=== PATIENT | male | born 1975 | race Caucasian/White ===

== ENCOUNTER 2019-01-16 00:14 | Emergency (ER) | payer SELFPAY ==
[~2019-01-16] VITALS: Ht 172.7 cm; Wt 92.5 kg
[~2019-01-16 00:14] MED LIST: NKM; VALIUM10 MG ORAL; [UNRECOGNIZED DRUG - REMARK]
[2019-01-16] MEDS ORDERED: DIOVAN80 MG ORAL (00:23)
[2019-01-16 00:40] VITALS: BP 132/78
--- NOTE | 2019-01-16 00:40 | NUR ---
ED Nurse Note: Patient walked in to ER c/o chest pain 12/12. Per patient he just broke up with his and because of that he keeps drinking a lot. AAO x4, VSS at this time, skin is dry, warm to touch.
[2019-01-16 00:54] LABS: BASOPHILS % (AUTO) 1.2 % (0.0-2.0); EOSINOPHILS % (AUTO) 1.2 % (0.0-3.0); HEMATOCRIT 43.8 % (42.0-52.0); HEMOGLOBIN 15.9 G/DL (14.2-18.0); LYMPHOCYTES % (AUTO) 32.2 % (20.0-45.0); MEAN CORPUSCULAR VOLUME 84 FL (80-99); MONOCYTES % (AUTO) 7.2 % (1.0-10.0); NEUTROPHILS % (AUTO) 58.3 % (45.0-75.0); PLATELET COUNT 319 K/UL (150-450); RED BLOOD COUNT 5.21 M/UL (4.70-6.10); RED CELL DISTRIBUTION WIDTH 10.7 % (11.6-14.8); WHITE BLOOD COUNT 14.3 K/UL (4.8-10.8)
[2019-01-16 01:06] LABS: ANION GAP 12 mmol/L (5-15); BLOOD UREA NITROGEN 14 mg/dL (7-18); CALCIUM 8.9 MG/DL (8.5-10.1); CARBON DIOXIDE 26 MMOL/L (21-32); CHLORIDE 102 MMOL/L (98-107); CREATININE 0.8 MG/DL (0.55-1.30); POTASSIUM 3.6 MMOL/L (3.5-5.1); SODIUM 140 MMOL/L (136-145)
[2019-01-16 01:10] LABS: ALANINE AMINOTRANSFERASE 67 U/L (12-78); ALBUMIN/GLOBULIN RATIO 1.3 (1.0-2.7); ALKALINE PHOSPHATASE 48 U/L (46-116); ASPARTATE AMINO TRANSFERASE 36 U/L (15-37); BILIRUBIN,TOTAL 0.5 MG/DL (0.2-1.0)
--- NOTE | 2019-01-16 01:36 | Emergency Room Report ---
History of Present Illness General Chief Complaint: Chest Pain Source: Patient Present Illness HPI This is a 43-year-old male with history anxiety. He presents with chief when a multiple complaint. He complaining of chest pain, not feeling well. He said he broke up with his and has been drinking for the last 3 days. Denies suicidal thoughts or homicidal thought. Does any fever or chills. Denies any vomiting. Most of his pain is vague and diffuse in nature. Allergies: Coded Allergies: No Known Allergies (Unverified , 03/19/13) Patient History Past Medical History: see triage record, old chart reviewed, psych hx Past Surgical History: none Pertinent Family History: none Social History: Reports: alcohol use Immunizations: other Reviewed Nursing Documentation: PMH: Agreed; PSxH: Agreed Nursing Documentation-PMH Past Medical History: No History, Except For Hx Hypertension: Yes Review of Systems Constitutional: Reports: malaise Eye: Denies: eye pain, blurred vision ENT: Denies: ear pain, nose congestion, throat swelling Respiratory: Denies: cough, shortness of breath Cardiovascular: Reports: chest pain; Denies: palpitations Gastrointestinal: Denies: abdominal pain, diarrhea, nausea, vomiting Musculoskeletal: Denies: back pain, joint pain Skin: Denies: rash Neurological: Denies: headache, numbness Endocrine: Denies: increased thirst, increased urine Hematologic/Lymphatic: Denies: easy bruising All Other Systems: negative except mentioned in HPI Physical Exam Vital Signs Date Time Temp Pulse Resp B/P (MAP) Pulse Ox O2 Delivery O2 Flow Rate FiO2 01/16/19 00:18 98.2 98 18 95 Room Air 01/16/19 00:40 132/78 vitals normal Sp02 EP Interpretation: reviewed, normal General Appearance: well appearing, no apparent distress, alert Head: normocephalic, atraumatic Eyes: bilateral eye PERRL, bilateral eye EOMI ENT: hearing grossly normal, normal pharynx Neck: full range of motion, supple, no meningismus Respiratory: chest non-tender, lungs clear, normal breath sounds Cardiovascular #1: regular rate, rhythm, no murmur Gastrointestinal: normal bowel sounds, non tender, no mass, no organomegaly, no bruit, non-distended Musculoskeletal: back normal, gait/station normal, normal range of motion Psychiatric: anxious Skin: warm/dry Medical Decision Making Diagnostic Impression: Primary Impression: Chest pain Qualified Codes: R07.9 - Chest pain, unspecified Additional Impression: Alcohol abuse ER Course patient presents with atypical chest pain. No evidence of ACS, PE, dissection to name a few. EKG Diagnostic Results Rate: normal Rhythm: NSR ST Segments: no acute changes ASA given to the pt in ED: No Rhythm Strip Diag. Results EP Interpretation: yes Rate: 65 Rhythm: NSR, no PVC's, no ectopy Last Vital Signs Date Time Temp Pulse Resp B/P (MAP) Pulse Ox O2 Delivery O2 Flow Rate FiO2 01/16/19 00:40 98 18 Room Air 01/16/19 00:40 98.2 132/78 95 Status: improved Disposition: HOME, SELF-CARE Condition: Stable Referrals: NOT CHOSEN IPA/MD,REFERRING (PCP) Patient Instructions: Nonspecific Chest Pain Additional Instructions: Stop drinking alcohol to excess. Follow-up with your doctor in 7 days. Return if worse. Lino Hirsch MD January 16, 2019 01:36
[2019-01-16 01:45] VITALS: BP 132/78
--- NOTE | 2019-01-16 01:45 | NUR ---
ED Nurse Note: Pt cleared by health care Provider for discharge. DC instructions/prescription was given and explained to pt and verbalized understanding of teachings. All medical deviecs such as ID band and IV removed. Pt is AAO x4, ambulatory and left with all personal belongings.
--- NOTE | 2019-01-16 17:30 | Cardiology Report ---
APPROVED REPORT EKG Measurement Heart [id number] Normal sinus rhythm Normal ECG
[2019-01-17] MEDS ORDERED: BUSPAR10 MG ORAL (01:43)
== END 2019-01-16 01:45 | disposition home or self-care (01) ==
LOC: EMR 00:37
DX: R07.9 Chest pain, unspecified (principal); F10.10 Alcohol abuse, uncomplicated; F41.9 Anxiety disorder, unspecified; I10 Essential (primary) hypertension
CPT/HCPCS: 36415; 80053; 83690; 84484; 85025; 93005; 96360; 99284

== ENCOUNTER 2019-01-17 01:20 | Emergency (ER) | payer SELFPAY ==
[~2019-01-17] VITALS: Ht 172.7 cm; Wt 92.5 kg
[~2019-01-17 01:20] MED LIST changes: +DIOVAN80 MG ORAL
[2019-01-17 01:30] VITALS: BP 136/91
[2019-01-17] MEDS ORDERED: BUSPAR10 MG ORAL (01:43)
--- NOTE | 2019-01-17 01:43 | Emergency Room Report ---
History of Present Illness General Chief Complaint: Chest Pain Source: Patient Present Illness HPI Is a 43-year-old male with history anxiety. He presents with chief complaint of chest pain and dizziness. He said he felt anxious. His been drinking alcohol. I saw him last night for the same thing. Blood work was normal. Troponin negative. Patient is on a lot of stress because he is from his . He has been drinking more. Denies any nausea vomiting. He felt anxious. [place] chest pain. [place] palpitation. Denies any other complaint. He walked in here without any difficulty. Allergies: Coded Allergies: No Known Allergies (Unverified , 03/19/13) Patient History Past Medical History: see triage record, old chart reviewed, psych hx Past Surgical History: none Pertinent Family History: none Social History: Reports: alcohol use Immunizations: other Reviewed Nursing Documentation: PMH: Agreed; PSxH: Agreed Nursing Documentation-PMH Past Medical History: No History, Except For Hx Hypertension: Yes Review of Systems Eye: Denies: eye pain, blurred vision ENT: Denies: ear pain, nose congestion, throat swelling Respiratory: Denies: cough, shortness of breath Cardiovascular: Reports: chest pain, palpitations Gastrointestinal: Denies: abdominal pain, diarrhea, nausea, vomiting Musculoskeletal: Denies: back pain, joint pain Skin: Denies: rash Neurological: Denies: headache, numbness Endocrine: Denies: increased thirst, increased urine Hematologic/Lymphatic: Denies: easy bruising All Other Systems: negative except mentioned in HPI Physical Exam Vital Signs Date Time Temp Pulse Resp B/P (MAP) Pulse Ox O2 Delivery O2 Flow Rate FiO2 01/17/19 01:23 98.2 113 18 95 Room Air vitals with tachycardia and high blood pressure Sp02 EP Interpretation: reviewed, normal General Appearance: well appearing, no apparent distress, alert Head: normocephalic, atraumatic Eyes: bilateral eye PERRL, bilateral eye EOMI ENT: hearing grossly normal, normal pharynx Neck: full range of motion, supple, no meningismus Respiratory: chest non-tender, lungs clear, normal breath sounds Cardiovascular #1: regular rate, rhythm, no murmur Gastrointestinal: normal bowel sounds, non tender, no mass, no organomegaly, no bruit, non-distended Musculoskeletal: back normal, gait/station normal, normal range of motion Psychiatric: anxious Skin: warm/dry Medical Decision Making Diagnostic Impression: Primary Impression: Anxiety Additional Impressions: Alcohol abuse Chest pain Qualified Codes: R07.9 - Chest pain, unspecified ER Course Patient presents with symptoms consistent with anxiety/panic attack. Probably worse by stressor and alcohol abuse. I see no evidence of ACS, PE, dissection to name a few. Her pressures normal here. Heart rate is in the 80s. We'll discharge home. EKG Diagnostic Results Rate: normal Rhythm: NSR ST Segments: no acute changes ASA given to the pt in ED: No Rhythm Strip Diag. Results EP Interpretation: yes Rate: 83 Rhythm: NSR, no PVC's, no ectopy Last Vital Signs Date Time Temp Pulse Resp B/P (MAP) Pulse Ox O2 Delivery O2 Flow Rate FiO2 01/17/19 01:23 98.2 113 18 95 Room Air Status: improved Disposition: HOME, SELF-CARE Condition: Stable Scripts Buspirone Hcl* (BUSPAR*) 10 Mg Tablet 10 MG ORAL THREE TIMES A DAY, #21 TAB 0 Refills Prov: Lino Hirsch MD 01/17/19 Referrals: NOT CHOSEN [facility]/,REFERRING (PCP) Additional Instructions: Stop drinking alcohol. Follow-up with your doctor in 7 days. Return if worse. Lino Hirsch MD January 17, 2019 01:43
--- NOTE | 2019-01-17 01:45 | NUR ---
ED Nurse Note: RECIEVED PT FROM HOME, AWEAKE, ALERT AND ORIENTED X 4, AMBULATORY WITH STEADY GAIT, PT HERE WITH C/O FEELING ANXIOUS, PT ACTUALLY DENIES PAIN AND STATES HE CANT SLEEP AND FEELS STRESSED, PT DOES ADMIT TO DRINKING ALCOHOL AND HAS STRONG ETOH ODOR NOTED, PT IMMEDIATELY ASSISTED WITH GOWNING AND CARDIAC MONITORING, PT SEEN BY MD AND BEING RELEASED WITH PRESCRIPTIONS, PT DENIES BEING HOMELESS, NAD NOTED DURING D/C TO HOME, PT V/S STABLE AND EKG IN NSR. NAD NOTED DURING D/C TO HOME.
[2019-01-17 01:50] VITALS: BP 136/91
== END 2019-01-17 01:55 | disposition home or self-care (01) ==
LOC: EMR 01:26
DX: F41.9 Anxiety disorder, unspecified (principal); F10.10 Alcohol abuse, uncomplicated; R07.9 Chest pain, unspecified; I10 Essential (primary) hypertension
CPT/HCPCS: 93005; 99283

== ENCOUNTER 2019-01-17 04:37 | Emergency (ER) | payer SELFPAY ==
[~2019-01-17] VITALS: Ht 172.7 cm; Wt 90.7 kg
[~2019-01-17 04:37] MED LIST changes: +BUSPAR10 MG ORAL
[2019-01-17 04:49] VITALS: BP 146/82
--- NOTE | 2019-01-17 04:49 | NUR ---
ED Nurse Note: Pt arrived ED from home. C/o abdominal pain and headache today and it was his the third time came to ED today. Pt is A/O X 4, Vital signs stable at this time, waiting for orders.
--- NOTE | 2019-01-17 04:58 | Emergency Room Report ---
History of Present Illness General Chief Complaint: Abdominal Pain Source: Patient Present Illness HPI Is a 43-year-old male who has history of alcohol abuse. Also has anxiety. I just saw him few hours ago. He came in with anxiety and dizziness and chest pain. Now he came back with complaint of abdominal pain. Onset was just prior to arrival. No nausea no vomiting. No fever chills but no vomiting or diarrhea. Pain is diffuse in nature. Denies any other complaint. Pain is 8 out of 10. Allergies: Coded Allergies: No Known Allergies (Unverified , 01/17/19) Patient History Past Medical History: see triage record, old chart reviewed, psych hx Past Surgical History: none Pertinent Family History: none Social History: Reports: alcohol use Immunizations: other Reviewed Nursing Documentation: PMH: Agreed; PSxH: Agreed Nursing Documentation-PMH Hx Hypertension: Yes Review of Systems Eye: Denies: eye pain, blurred vision ENT: Denies: ear pain, nose congestion, throat swelling Respiratory: Denies: cough, shortness of breath Cardiovascular: Denies: chest pain, palpitations Gastrointestinal: Reports: abdominal pain; Denies: diarrhea, nausea, vomiting Musculoskeletal: Denies: back pain, joint pain Skin: Denies: rash Neurological: Denies: headache, numbness Endocrine: Denies: increased thirst, increased urine Hematologic/Lymphatic: Denies: easy bruising All Other Systems: negative except mentioned in HPI Physical Exam Vital Signs Date Time Temp Pulse Resp B/P (MAP) Pulse Ox O2 Delivery O2 Flow Rate FiO2 01/17/19 04:43 98.2 92 16 96 Room Air vitals unremarkable Sp02 EP Interpretation: reviewed, normal General Appearance: well appearing, no apparent distress, alert, other - Strong smell of alcoholic beverage on breath Head: normocephalic, atraumatic Eyes: bilateral eye PERRL, bilateral eye EOMI ENT: hearing grossly normal, normal pharynx Neck: full range of motion, supple, no meningismus Respiratory: chest non-tender, lungs clear, normal breath sounds Cardiovascular #1: regular rate, rhythm, no murmur Gastrointestinal: normal bowel sounds, no mass, no organomegaly, no bruit, non- distended, tenderness - diffuse Musculoskeletal: back normal, gait/station normal, normal range of motion Psychiatric: mood/affect normal Skin: warm/dry Medical Decision Making Diagnostic Impression: Primary Impression: Abdominal pain Qualified Codes: R10.84 - Generalized abdominal pain Additional Impressions: Alcohol intoxication Qualified Codes: F10.920 - Alcohol use, unspecified with intoxication, uncomplicated Alcoholic hepatitis without ascites ER Course Patient presents with abdominal pain. This is probably secondary to alcoholic hepatitis. No evidence of any obstruction or acute abdomen. We'll discharge home. Lab Results Impression labs with elevated LFT CT/MRI/US Diagnostic Results CT/MRI/US Diagnostic Results : Imaging Test Ordered: CT abdomen and pelvis Impression Read by radiologist. Negative. Last Vital Signs Date Time Temp Pulse Resp B/P (MAP) Pulse Ox O2 Delivery O2 Flow Rate FiO2 01/17/19 04:43 98.2 92 16 96 Room Air Status: improved Disposition: HOME, SELF-CARE Condition: Stable Referrals: NOT CHOSEN [facility]/,REFERRING (PCP) Additional Instructions: Stop drinking alcohol. Follow-up with your doctor in 5 days. Return if worse. Lino Hirsch MD January 17, 2019 04:58
--- NOTE | 2019-01-17 04:58 | NUR ---
ED Nurse Note: Blood sample collected and sent to Lab.
[2019-01-17 05:10] LABS: EOSINOPHILS % (AUTO) 0.8 % (0.0-3.0); HEMATOCRIT 43.4 % (42.0-52.0); HEMOGLOBIN 15.9 G/DL (14.2-18.0); LYMPHOCYTES % (AUTO) 21.4 % (20.0-45.0); MEAN CORPUSCULAR VOLUME 84 FL (80-99); MONOCYTES % (AUTO) 9.2 % (1.0-10.0); NEUTROPHILS % (AUTO) 67.6 % (45.0-75.0); PLATELET COUNT 318 K/UL (150-450); RED BLOOD COUNT 5.16 M/UL (4.70-6.10); RED CELL DISTRIBUTION WIDTH 10.5 % (11.6-14.8); WHITE BLOOD COUNT 16.1 K/UL (4.8-10.8)
[2019-01-17 05:24] LABS: ANION GAP 13 mmol/L (5-15); BLOOD UREA NITROGEN 17 mg/dL (7-18); CALCIUM 8.8 MG/DL (8.5-10.1); CARBON DIOXIDE 24 MMOL/L (21-32); CHLORIDE 101 MMOL/L (98-107); CREATININE 0.8 MG/DL (0.55-1.30); POTASSIUM 3.4 MMOL/L (3.5-5.1); SODIUM 137 MMOL/L (136-145)
[2019-01-17 05:34] LABS: ALANINE AMINOTRANSFERASE 93 U/L (12-78); ALBUMIN/GLOBULIN RATIO 1.2 (1.0-2.7); ALKALINE PHOSPHATASE 57 U/L (46-116); ASPARTATE AMINO TRANSFERASE 159 U/L (15-37); BILIRUBIN,TOTAL 1.3 MG/DL (0.2-1.0)
[2019-01-17 05:36] LABS: BILIRUBIN,DIRECT 0.3 MG/DL (0.0-0.3)
[2019-01-17 05:45] VITALS: BP 123/76
[2019-01-17 06:11] VITALS: BP 123/76
--- NOTE | 2019-01-17 06:11 | NUR ---
ER DISCHARGE NOTE: Patient is cleared to be discharged per Dr. Hirsch. Pt is aox4 on room air with stable vital signs. Pt was given dc and prescription instructions and was able to verbalize understanding. Pt's ID band and iv site removed without complications. Pt is able to ambulate with steady gait and took all belongings.
--- NOTE | 2019-01-17 09:38 | Diagnostic Imaging Report ---
Indication: Abdominal pain Technique: Continuous helical transaxial imaging of the abdomen and pelvis was obtained from the lung bases to the pubic symphysis. No intravenous contrast was administered. Coronal 2-D reformats were also obtained. Automatic Exposure Control was utilized. Total Dose length Product (DLP): 1145.[address] Dose Index Volume (CTDIvol): 19.75 mGy Comparison: none Findings: Lung bases are clear. There is a hiatal hernia. The gallbladder is slightly dense and may be due to underlying sludge or small stones. There is no ascites or free fluid. Bowel gas pattern is nonobstructive. There is no hydronephrosis or renal stones identified. The appendix is normal. IMPRESSION: Gallbladder sludge suspected. Stones not excluded. Small hiatal hernia [facility] has communicated the preliminary results to the Emergency Department. Their findings are largely concordant with this report. The CT scanner at [facility] is accredited by the [employer] and the scans are performed using dose optimization techniques as appropriate to a performed exam including Automatic Exposure control.
== END 2019-01-17 06:11 | disposition home or self-care (01) ==
LOC: EMR 04:54
DX: R10.9 Unspecified abdominal pain (principal); F10.129 Alcohol abuse with intoxication, unspecified; I10 Essential (primary) hypertension; K44.9 Diaphragmatic hernia without obstruction or gangrene
CPT/HCPCS: 36415; 74176; 80053; 82248; 83690; 85025; 99284; G0480; 80329